=== PATIENT | male | born 1965 | race Caucasian/White ===

== ENCOUNTER 2019-02-02 14:09 | Emergency (ER) | payer OTHER ==
[~2019-02-02 14:09] MED LIST: PREDNISONE10 MG PO; RT ALBUTEROL CC18 GM IH; ZITHROMAX Z PA250 MG PO
[2019-02-02] MEDS ORDERED: VIBRAMYCIN HYC100 MG PO (15:02)
[2019-02-02] MEDS ORDERED: KLONOPIN 0.5MG0.5 MG PO (15:02)
[2019-02-02] MEDS ORDERED: PREDNISONE20 M1 PO (15:02)
[2019-02-02] MEDS ORDERED: CIPRO 500MG TA500 MG PO (15:04)
[2019-02-02] MEDS ORDERED: WELLBUTRIN (15:04)
[2019-02-02 16:29] LABS: EOS % 0.1 % (0.0-4.0); HEMATOCRIT 36.6 % (42.0-52.0); HEMOGLOBIN 12.2 g/dL (13.5-18.0); LYMPH# 1.7 (1.50-4.00); MEAN CELL VOLUME 92 fl (78-100); MEAN CORPUSCULAR HEMOGLOBIN 31 pg (27-31); MEAN CORPUSCULAR HGB CONC 33 g/dL (33-37); MEAN PLATELET VOLUME 11.6 fl (7.4-10.4); MONO # 0.7 (0.20-0.80); PLATELET COUNT 347 K/mm3 (130-400); RED BLOOD COUNT 3.98 M/mm3 (4.20-5.60); WHITE BLOOD COUNT 11.6 K/mm3 (4.8-10.8)
[2019-02-02 16:34] LABS: ALBUMIN 4.2 g/dL (3.5-5.0); POTASSIUM 4.3 mmol/L (3.5-5.1)
[2019-02-02 16:35] LABS: SODIUM 137 mmol/L (136-145)
[2019-02-02 16:36] LABS: CALCIUM 9.3 mg/dL (8.3-10.5)
[2019-02-02 16:37] LABS: TOTAL PROTEIN 7.2 g/dL (6.4-8.3)
[2019-02-02 16:39] LABS: TOTAL BILIRUBIN 0.3 mg/dL (0.2-1.2)
[2019-02-02 16:40] LABS: ALCOHOL IN-HOUSE 143 mg/dL (<10)
[2019-02-02 16:42] LABS: AST-SGOT 27 U/L (5-34)
[2019-02-02 16:44] LABS: ALT/SGPT 24 U/L (0-55)
[2019-02-02 16:50] LABS: ACETAMINOPHEN < 1 ug/mL; CARBON DIOXIDE 16 mmol/L (22-29)
[2019-02-02 17:14] LABS: GLUCOSE 74 mg/dL (75-110)
[2019-02-02 17:24] LABS: NEU # 9.2 (1.40-6.50)
[2019-02-02 17:33] LABS: URINE APPEARANCE CLEAR; URINE BILIRUBIN NEGATIVE (NEGATIVE); URINE BLOOD TRACE (NEGATIVE); URINE COLOR LIGHT YELLOW; URINE GLUCOSE NEGATIVE (NEGATIVE); URINE KETONE NEGATIVE (NEGATIVE); URINE LEUKOCYTE ESTERASE NEGATIVE (NEGATIVE); URINE NITRATE NEGATIVE (NEGATIVE); URINE PROTEIN(semi-quant) NEGATIVE (NEGATIVE); URINE UROBILINOGEN NORMAL (NORMAL)
[2019-02-02 17:34] LABS: URINE WBC 0-1 /hpf (0-3)
[2019-02-02] MEDS ORDERED: FAMOTIDINE20 MG PO (17:55)
[2019-02-02 22:00] VITALS: BP 133/62
== END 2019-02-02 22:00 | disposition home or self-care (01) ==
LOC: ED 14:09
PROVIDERS: Nurse Practitioner Primary Care
DX: R45.851 Suicidal ideations (principal); F10.129 Alcohol abuse with intoxication, unspecified; J44.9 Chronic obstructive pulmonary disease, unspecified; F41.9 Anxiety disorder, unspecified; I10 Essential (primary) hypertension; G20 Parkinson's disease; C61 Malignant neoplasm of prostate; F17.210 Nicotine dependence, cigarettes, uncomplicated; Z79.52 Long term (current) use of systemic steroids
CPT/HCPCS: J2060; J2250